=== PATIENT | male | born 1935 | race Two or more races ===

== ENCOUNTER 2022-07-22 14:09 | Inpatient (IN) | payer OTHER, MEDICARE, MEDICAID ==
[~2022-07-22] VITALS: Ht 180.3 cm; Wt 92.3 kg
[2022-07-22 15:31] LABS: Basophils # (auto) 0.1 10 ^3/uL (0-0.2); Basophils % (auto) 0.7 % (0.0-2.0); Eosinophils # (auto) 0.5 10 ^3/uL (0-0.8); Eosinophils % (auto) 5.8 % (0.0-7.0); Hematocrit 45.2 % (41.0-53.0); Hemoglobin 15.5 g/dL (13.5-17.5); Lymphocytes % (auto) 10.6 % (10.0-50.0); Mean Corpuscular Hemoglobin 32.1 pg (28.0-32.0); Mean Corpuscular Hgb Conc. 34.2 g/dL (32.0-36.0); Mean Corpuscular Volume 93.7 fL (80.0-100.0); Monocytes # (auto) 0.7 10 ^3/uL (0-1.3); Monocytes % (auto) 6.9 % (0.0-12.0); Neutrophils # (auto) 7.2 10 ^3/uL (1.6-8.6); Red Blood Cells 4.83 10^6/uL (4.5-5.90); Red Cell Distribution Width 14.1 % (11.8-14.3); White Blood Cell 9.5 10^3/uL (4.4-10.8)
[2022-07-22 15:38] LABS: INR 1.14 (0.9-1.15); Partial Thromboplastin Time 33.9 sec (24.6-33.4)
[2022-07-22 15:57] LABS: Potassium 3.8 mmol/L (3.5-5.1)
[2022-07-22 16:00] LABS: Albumin 3.2 g/dL (3.4-5.0); BUN/Creatinine Ratio 22.1; Calcium 8.9 mg/dL (8.5-10.1)
[2022-07-22 16:03] LABS: Bilirubin, Total 1.8 mg/dL (0.2-1.0); Total Protein 6.7 g/dL (6.4-8.2)
[2022-07-22] MEDS ORDERED: MORPHINE SULFATE 4 MG/ML SYR/VIAL IV ONE (16:30)
[2022-07-22] MEDS ORDERED: ONDANSETRON HCL 4 MG/2 ML VIAL IV ONE (16:30)
[2022-07-22 17:13] LABS: Urine Bacteria NONE SEEN /hpf (None Seen); Urine Blood 3+ /uL (Negative); Urine Specific Gravity 1.017 (1.001-1.035); Urine WBC 328 /hpf (0 - 3); Urine WBC Clumps PRESENT /hpf (None Seen)
[2022-07-22] MEDS ORDERED: PANTOPRAZOLE 40 MG/10 ML VIAL INJ IV ONE (19:15)
[2022-07-22] MEDS ORDERED: ACETAMINOPHEN 325 MG TAB PO PRN (19:15)
[2022-07-22] MEDS ORDERED: TAMS0.4C36 PO (19:23)
[2022-07-22] MEDS ORDERED: FLUT1AER12 INH (19:23)
[2022-07-22] MEDS ORDERED: ZOLP10TA6 PO (19:23)
[2022-07-22] MEDS ORDERED: CEPH500C PO (19:23)
[2022-07-22] MEDS ORDERED: TEMA30CA PO (19:23)
[2022-07-22] MEDS ORDERED: DOCU100C10 (19:23)
[2022-07-22] MEDS ORDERED: APIX5TAB (19:23)
[2022-07-22] MEDS ORDERED: GAB100C PO (19:23)
[2022-07-22] MEDS ORDERED: KETOROLAC TROMETH 30 MG/ML 1ML VIAL IV PRN (19:45)
[2022-07-22] MEDS ORDERED: KETOROLAC TROMETH 30 MG/ML 1ML VIAL IV ONE (19:45)
[2022-07-22 20:01] LABS: Cholesterol 123 mg/dL (< 200); HDL Cholesterol 46 mg/dL (40-59); LDL Cholesterol 72 mg/dL (< 100); Triglycerides 77 mg/dL (< 150)
[2022-07-22] MEDS: TAMSULOSIN HYDROCHLORIDE 0.4 MG CAP PO SCH (22:13)
[2022-07-22] MEDS: GABAPENTIN 100 MG CAP PO SCH (22:14)
[2022-07-22] MEDS: SODIUM CHLORIDE 0.9% 1,000 ML IV SCH (22:15)
[2022-07-22] MEDS ORDERED: MORPHINE SULFATE INJ 2 MG/ml SYRG IV PRN (23:30)
[2022-07-23 04:54] LABS: Basophils # (auto) 0 10 ^3/uL (0-0.2); Basophils % (auto) 0.3 % (0.0-2.0); Eosinophils # (auto) 0.5 10 ^3/uL (0-0.8); Eosinophils % (auto) 6.2 % (0.0-7.0); Hemoglobin 13.7 g/dL (13.5-17.5); Lymphocytes # (auto) 0.5 10 ^3/uL (0.4-5.4); Lymphocytes % (auto) 6.1 % (10.0-50.0); Mean Corpuscular Hemoglobin 31.8 pg (28.0-32.0); Mean Corpuscular Hgb Conc. 34.1 g/dL (32.0-36.0); Monocytes # (auto) 0.6 10 ^3/uL (0-1.3); Neutrophils # (auto) 6.8 10 ^3/uL (1.6-8.6); Neutrophils % (auto) 80.4 % (37.0-80.0); Red Cell Distribution Width 14.4 % (11.8-14.3); White Blood Cell 8.5 10^3/uL (4.4-10.8)
[2022-07-23 05:12] LABS: Potassium 3.9 mmol/L (3.5-5.1)
[2022-07-23 05:16] LABS: Albumin 2.8 g/dL (3.4-5.0); BUN/Creatinine Ratio 24.1; Calcium 8.4 mg/dL (8.5-10.1)
[2022-07-23 05:25] LABS: Bilirubin, Total 2.2 mg/dL (0.2-1.0); Total Protein 5.9 g/dL (6.4-8.2)
[2022-07-23] MEDS: GABAPENTIN 100 MG CAP PO SCH ×3 (06:40→21:39)
[2022-07-23] MEDS: SODIUM CHLORIDE 0.9% 1,000 ML IV SCH (09:33)
[2022-07-23] MEDS: PANTOPRAZOLE 40 MG/10 ML VIAL INJ IV SCH (10:33)
[2022-07-23] MEDS: ENOXAPARIN SOD 40 MG/0.4 ML SYRINGE SC SCH (10:33)
[2022-07-23] MEDS ORDERED: cefTRIAXone 1GM/50ML D5W 50 ML IV ONE (11:15)
[2022-07-23 18:38] LABS: Hematocrit 40.5 % (41.0-53.0); Hemoglobin 13.8 g/dL (13.5-17.5)
[2022-07-23 20:08] VITALS: BP 104/58
[2022-07-23] MEDS: TAMSULOSIN HYDROCHLORIDE 0.4 MG CAP PO SCH (21:39)
[2022-07-23 22:00] VITALS: BP 104/58
[2022-07-24] MEDS: SODIUM CHLORIDE 0.9% 1,000 ML IV SCH ×2 (00:26→14:09)
[2022-07-24 05:00] VITALS: BP 130/67
[2022-07-24] MEDS: GABAPENTIN 100 MG CAP PO SCH ×3 (05:55→21:43)
[2022-07-24 09:00] VITALS: BP 127/66
[2022-07-24] MEDS: cefTRIAXone 1GM/50ML D5W 50 ML IV SCH (10:48)
[2022-07-24] MEDS: ENOXAPARIN SOD 40 MG/0.4 ML SYRINGE SC SCH (10:48)
[2022-07-24] MEDS: PANTOPRAZOLE 40 MG/10 ML VIAL INJ IV SCH (10:48)
[2022-07-24 13:00] VITALS: BP 114/56
[2022-07-24] MEDS: HYDROcodone-ACET 5/325MG TAB PO PRN (13:15)
[2022-07-24 17:00] VITALS: BP 117/75
[2022-07-24] MEDS: TAMSULOSIN HYDROCHLORIDE 0.4 MG CAP PO SCH (21:42)
[2022-07-24 22:00] VITALS: BP 105/59
[2022-07-25 05:00] VITALS: BP 105/67
[2022-07-25] MEDS: SODIUM CHLORIDE 0.9% 1,000 ML IV SCH ×2 (05:21→21:55)
[2022-07-25] MEDS: GABAPENTIN 100 MG CAP PO SCH ×3 (05:32→21:54)
[2022-07-25] MEDS: cefTRIAXone 1GM/50ML D5W 50 ML IV SCH (09:22)
[2022-07-25] MEDS: ENOXAPARIN SOD 40 MG/0.4 ML SYRINGE SC SCH (09:23)
[2022-07-25 09:30] VITALS: BP 104/75
[2022-07-25] MEDS: HYDROcodone-ACET 5/325MG TAB PO PRN (09:31)
[2022-07-25 13:00] VITALS: BP 102/59
[2022-07-25 17:00] VITALS: BP 104/63
[2022-07-25] MEDS: TAMSULOSIN HYDROCHLORIDE 0.4 MG CAP PO SCH (21:55)
[2022-07-25 22:00] VITALS: BP 110/62
[2022-07-26] MEDS: GABAPENTIN 100 MG CAP PO SCH ×3 (06:41→22:22)
[2022-07-26] MEDS: cefTRIAXone 1GM/50ML D5W 50 ML IV SCH (08:39)
[2022-07-26 09:00] VITALS: BP 124/62
[2022-07-26] MEDS: SODIUM CHLORIDE 0.9% 1,000 ML IV SCH (09:03)
[2022-07-26] MEDS: ENOXAPARIN SOD 40 MG/0.4 ML SYRINGE SC SCH (09:05)
[2022-07-26] MEDS: HYDROcodone-ACET 5/325MG TAB PO PRN (10:32)
[2022-07-26 13:00] VITALS: BP 101/58
[2022-07-26 16:46] VITALS: BP 104/61
[2022-07-26 22:00] VITALS: BP 113/65
[2022-07-26] MEDS: TAMSULOSIN HYDROCHLORIDE 0.4 MG CAP PO SCH (22:23)
[2022-07-27] MEDS: SODIUM CHLORIDE 0.9% 1,000 ML IV SCH ×2 (02:20→13:39)
[2022-07-27 05:00] VITALS: BP 135/88
[2022-07-27] MEDS: GABAPENTIN 100 MG CAP PO SCH ×2 (05:44→14:00)
[2022-07-27] MEDS ORDERED: DEXTROSE 50% SYRINGE 50 ML IV ONE (07:08)
[2022-07-27] MEDS: cefTRIAXone 1GM/50ML D5W 50 ML IV SCH (08:44)
[2022-07-27 09:00] VITALS: BP 121/86
[2022-07-27] MEDS: ENOXAPARIN SOD 40 MG/0.4 ML SYRINGE SC SCH (10:02)
[2022-07-27 13:00] VITALS: BP 103/61
[2022-07-27 16:54] VITALS: BP 144/69
== END 2022-07-27 16:00 | DRG 536 ==
LOC: EDBD 14:09 → ER 14:17 → OVERFLOW 19:19 → WEST WING 07-23 18:39
PROVIDERS: ADMIT Nurse Practitioner Family; ATTEND Family Medicine
DX: S32.432A Displaced fracture of anterior column [iliopubic] of left acetabulum, initial encounter for closed fracture (principal); S32.592A Other specified fracture of left pubis, initial encounter for closed fracture; E46 Unspecified protein-calorie malnutrition; J44.1 Chronic obstructive pulmonary disease with (acute) exacerbation; N39.0 Urinary tract infection, site not specified; N40.0 Benign prostatic hyperplasia without lower urinary tract symptoms; E66.01 Morbid (severe) obesity due to excess calories; W18.39XA Other fall on same level, initial encounter; G62.9 Polyneuropathy, unspecified; Z20.822 Contact with and (suspected) exposure to COVID-19; Z68.33 Body mass index [BMI] 33.0-33.9, adult; Z87.891 Personal history of nicotine dependence; Z86.718 Personal history of other venous thrombosis and embolism; Z90.49 Acquired absence of other specified parts of digestive tract; Z91.81 History of falling; Y93.89 Activity, other specified; Y92.89 Other specified places as the place of occurrence of the external cause; Y99.8 Other external cause status
CPT/HCPCS: 36415; 71101; 73502; 73700; 80053; 80061; 81001; 83036; 84443; 85014; 85018; 85025; 85610; 85730; 86850; 86900; 86901; 87040; 87086; 87426; 93005; 96374; 96375; 97110; 97116; 97163; C9113; G0378; J0696; J1885; J2405

== ENCOUNTER 2022-12-24 00:25 | Emergency (ER) | payer MEDICARE, MEDICAID ==
[~2022-12-24] VITALS: Ht 182.9 cm; Wt 86.3 kg
[~2022-12-24 00:25] MED LIST: APIX5TAB; CEPH500C PO; DOCU-265; FLUT1AER12 INH; GAB100C PO; TAMS0.4C36 PO; TEMA30CA PO; ZOLP10TA6 PO
[2022-12-24 07:30] LABS: Basophils # (auto) 0.1 10 ^3/uL (0-0.2); Basophils % (auto) 0.9 % (0.0-2.0); Eosinophils # (auto) 0.5 10 ^3/uL (0-0.8); Eosinophils % (auto) 8.8 % (0.0-7.0); Hematocrit 42.2 % (41.0-53.0); Hemoglobin 14.5 g/dL (13.5-17.5); Lymphocytes % (auto) 18.8 % (10.0-50.0); Mean Corpuscular Hemoglobin 31.2 pg (28.0-32.0); Mean Corpuscular Hgb Conc. 34.3 g/dL (32.0-36.0); Monocytes # (auto) 0.8 10 ^3/uL (0-1.3); Monocytes % (auto) 14.5 % (0.0-12.0); Neutrophils # (auto) 3.1 10 ^3/uL (1.6-8.6); Nucleated Red Blood Cells % 0.2 %; Red Blood Cells 4.64 10^6/uL (4.5-5.90); Red Cell Distribution Width 14.5 % (11.8-14.3); White Blood Cell 5.4 10^3/uL (4.4-10.8)
[2022-12-24 07:44] LABS: INR 1.07 (0.9-1.15); Partial Thromboplastin Time 34.2 sec (24.6-33.4)
[2022-12-24 07:49] LABS: Albumin 3.2 g/dL (3.4-5.0); Calcium 8.2 mg/dL (8.5-10.1)
[2022-12-24 07:54] LABS: BUN/Creatinine Ratio 20.3 (10.0-20.0); Bilirubin, Total 0.8 mg/dL (0.2-1.0); Total Protein 6.2 g/dL (6.4-8.2)
[2022-12-24 12:44] VITALS: BP 120/98
== END 2022-12-24 08:57 | disposition home or self-care (01) ==
LOC: ER 00:25 → EDUNIT# 00:25 → EDBD 00:25 → ER 08:57
DX: M79.662 Pain in left lower leg (principal); M79.661 Pain in right lower leg; J44.9 Chronic obstructive pulmonary disease, unspecified; Z87.891 Personal history of nicotine dependence; Z90.49 Acquired absence of other specified parts of digestive tract
CPT/HCPCS: 36415; 80053; 84484; 85025; 85610; 85730; 93970

== ENCOUNTER 2023-12-16 09:05 | Inpatient (IN) | payer OTHER, MEDICAID ==
[~2023-12-16] VITALS: Ht 188 cm; Wt 94.2 kg
[2023-12-16 10:18] LABS: Basophils # (auto) 0 10 ^3/uL (0-0.2); Basophils % (auto) 0.5 % (0.0-2.0); Eosinophils # (auto) 0 10 ^3/uL (0-0.8); Eosinophils % (auto) 0.4 % (0.0-7.0); Hematocrit 32.1 % (41.0-53.0); Hemoglobin 11.2 g/dL (13.5-17.5); Lymphocytes # (auto) 0.5 10 ^3/uL (0.4-5.4); Lymphocytes % (auto) 6.2 % (10.0-50.0); Mean Corpuscular Hemoglobin 32.4 pg (28.0-32.0); Mean Corpuscular Hgb Conc. 34.7 g/dL (32.0-36.0); Mean Corpuscular Volume 93.3 fL (80.0-100.0); Monocytes # (auto) 0.7 10 ^3/uL (0-1.3); Monocytes % (auto) 9.4 % (0.0-12.0); Neutrophils # (auto) 6.3 10 ^3/uL (1.6-8.6); Neutrophils % (auto) 83.5 % (37.0-80.0); Red Blood Cells 3.44 10^6/uL (4.5-5.90); White Blood Cell 7.6 10^3/uL (4.4-10.8)
[2023-12-16 10:41] LABS: Albumin 3.4 g/dL (3.2-4.8); Alkaline Phosphatase 46 U/L (46-116); Anion Gap 5 (5-15); Aspartate Aminotransferase 13 U/L (13-40); BUN/Creatinine Ratio 17.9 (10.0-20.0); Blood Urea Nitrogen 19 mg/dL (9-23); Carbon Dioxide 26 mmol/L (20-30); Chloride 110 mmol/L (98-107); Glucose 113 mg/dL (74-106); Potassium 4.1 mmol/L (3.5-5.1); Sodium 141 mmol/L (136-145)
[2023-12-16 10:42] LABS: Alanine Aminotransferase < 9 U/L (7-40); Bilirubin, Total 0.9 mg/dL (0.2-1.0); Total Protein 5.6 g/dL (5.7-8.2)
[2023-12-16 10:49] LABS: INR 1.52 (0.9-1.15); Prothrombin Time 15.6 sec (9.3-11.8)
[2023-12-16 12:19] VITALS: O2SAT 98
[2023-12-16] MEDS ORDERED: NITROGLYCERIN 0.4 MG SL TAB SL PRN (14:45)
[2023-12-16] MEDS ORDERED: MORPHINE SULFATE INJ 2 MG/ml SYRG IV PRN (14:45)
[2023-12-16 20:00] VITALS: BP 133/81; PULSE 71; PULSE 82; RESP 18; TEMP 36.4
[2023-12-16] MEDS: APIXABAN 5 MG TAB PO SCH (20:35)
[2023-12-16] MEDS: HYDROcodone-ACET 5/325MG TAB PO PRN (20:35)
[2023-12-16] MEDS: PIPERACILLIN-TAZOB 3.375GM 100 ML IV SCH (20:36)
[2023-12-16 21:00] VITALS: BP 126/62; PULSE 89; RESP 18; TEMP 97.3; O2SAT 97
[2023-12-17] VITALS (8 sets, daily range): BP systolic 112–130; BP diastolic 61–75; PULSE 70–99; RESP 16–20; TEMP 97.7–98.4; O2SAT 95–97
[2023-12-17] MEDS: SODIUM CHLOR 0.9% PF (SALINE LOCK) 10ML VIAL/SYR IV SCH (04:48)
[2023-12-17 06:40] LABS: Basophils # (auto) 0 10 ^3/uL (0-0.2); Basophils % (auto) 0.5 % (0.0-2.0); Eosinophils # (auto) 0.2 10 ^3/uL (0-0.8); Eosinophils % (auto) 3.4 % (0.0-7.0); Hematocrit 26.3 % (41.0-53.0); Hemoglobin 9.2 g/dL (13.5-17.5); Lymphocytes # (auto) 0.9 10 ^3/uL (0.4-5.4); Lymphocytes % (auto) 12.5 % (10.0-50.0); Mean Corpuscular Hemoglobin 32.7 pg (28.0-32.0); Mean Corpuscular Volume 93.4 fL (80.0-100.0); Neutrophils % (auto) 69.6 % (37.0-80.0); Red Blood Cells 2.81 10^6/uL (4.5-5.90); Red Cell Distribution Width 14.3 % (11.8-14.3); White Blood Cell 7.2 10^3/uL (4.4-10.8)
[2023-12-17 07:01] LABS: Alkaline Phosphatase 39 U/L (46-116); Anion Gap 5 (5-15); Aspartate Aminotransferase 15 U/L (13-40); Bilirubin, Total 1.2 mg/dL (0.2-1.0); Blood Urea Nitrogen 23 mg/dL (9-23); Calcium 8.6 mg/dL (8.7-10.4); Carbon Dioxide 27 mmol/L (20-30); Chloride 110 mmol/L (98-107); Glucose 101 mg/dL (74-106); Potassium 3.6 mmol/L (3.5-5.1); Sodium 142 mmol/L (136-145); Total Protein 5.1 g/dL (5.7-8.2)
[2023-12-17 07:12] LABS: Alanine Aminotransferase < 9 U/L (7-40)
[2023-12-17] MEDS: ZINC SULFATE 220mg CAP or TAB PO SCH (11:22)
[2023-12-17] MEDS: MULTIPLE VITAMIN TAB PO SCH (11:22)
[2023-12-17] MEDS: CLINDAMYCIN 600MG IV 50 ML IV ONE (11:24)
[2023-12-17] MEDS: CLINDAMYCIN 600MG IV 50 ML IV SCH (14:26)
[2023-12-17] MEDS: MELATONIN 5 MG TAB PO SCH (21:21)
[2023-12-17] MEDS: DOCUSATE SOD 100 MG CAP PO PRN (21:32)
[2023-12-18] VITALS (9 sets, daily range): BP systolic 102–152; BP diastolic 54–96; PULSE 63–75; RESP 14–18; TEMP 97.8–98.2; O2SAT 98–100
[2023-12-18 07:00] LABS: Basophils # (auto) 0 10 ^3/uL (0-0.2); Basophils % (auto) 0.7 % (0.0-2.0); Eosinophils # (auto) 0.4 10 ^3/uL (0-0.8); Eosinophils % (auto) 5.9 % (0.0-7.0); Hematocrit 23.6 % (41.0-53.0); Hemoglobin 8.2 g/dL (13.5-17.5); Lymphocytes # (auto) 1.1 10 ^3/uL (0.4-5.4); Lymphocytes % (auto) 17.8 % (10.0-50.0); Mean Corpuscular Hemoglobin 32.9 pg (28.0-32.0); Mean Corpuscular Hgb Conc. 34.7 g/dL (32.0-36.0); Mean Corpuscular Volume 94.9 fL (80.0-100.0); Monocytes # (auto) 0.9 10 ^3/uL (0-1.3); Monocytes % (auto) 14.9 % (0.0-12.0); Neutrophils # (auto) 3.8 10 ^3/uL (1.6-8.6); Neutrophils % (auto) 60.7 % (37.0-80.0); Red Blood Cells 2.49 10^6/uL (4.5-5.90); Red Cell Distribution Width 14.1 % (11.8-14.3); White Blood Cell 6.2 10^3/uL (4.4-10.8)
[2023-12-18 07:17] LABS: Albumin 2.9 g/dL (3.2-4.8); Alkaline Phosphatase 37 U/L (46-116); Anion Gap 6 (5-15); Aspartate Aminotransferase 13 U/L (13-40); Calcium 8.5 mg/dL (8.7-10.4); Carbon Dioxide 26 mmol/L (20-30); Chloride 107 mmol/L (98-107); Glucose 103 mg/dL (74-106); Potassium 3.8 mmol/L (3.5-5.1); Sodium 139 mmol/L (136-145)
[2023-12-18 07:18] LABS: Bilirubin, Total 0.9 mg/dL (0.2-1.0); Total Protein 4.9 g/dL (5.7-8.2)
[2023-12-18 07:23] LABS: Alanine Aminotransferase < 9 U/L (7-40)
[2023-12-18 07:25] LABS: Blood Urea Nitrogen 21 mg/dL (9-23)
[2023-12-19] VITALS (7 sets, daily range): BP systolic 119–126; BP diastolic 59–66; PULSE 66–95; RESP 15–19; TEMP 97–98.1; O2SAT 96–100
[2023-12-19 06:38] LABS: Basophils # (auto) 0 10 ^3/uL (0-0.2); Basophils % (auto) 0.8 % (0.0-2.0); Hemoglobin 7.7 g/dL (13.5-17.5); Monocytes # (auto) 0.9 10 ^3/uL (0-1.3); Neutrophils # (auto) 3.7 10 ^3/uL (1.6-8.6)
[2023-12-19 06:40] LABS: Eosinophils # (auto) 0.5 10 ^3/uL (0-0.8); Eosinophils % (auto) 7.7 % (0.0-7.0); Lymphocytes # (auto) 0.9 10 ^3/uL (0.4-5.4); Lymphocytes % (auto) 15.9 % (10.0-50.0); Mean Corpuscular Hemoglobin 32.7 pg (28.0-32.0); Mean Corpuscular Volume 93.4 fL (80.0-100.0); Monocytes % (auto) 14.4 % (0.0-12.0); Neutrophils % (auto) 61.2 % (37.0-80.0); Red Blood Cells 2.36 10^6/uL (4.5-5.90)
[2023-12-19] MEDS: ONDANSETRON HCL 4 MG/2 ML VIAL IV PRN (14:33)
[2023-12-20] VITALS (7 sets, daily range): BP systolic 96–123; BP diastolic 50–58; PULSE 67–83; RESP 16–19; TEMP 97.6–98.8; O2SAT 96–99
[2023-12-20 06:48] LABS: Monocytes # (auto) 1.2 10 ^3/uL (0-1.3)
[2023-12-20 06:53] LABS: Basophils # (auto) 0 10 ^3/uL (0-0.2); Basophils % (auto) 0.6 % (0.0-2.0); Eosinophils # (auto) 0.3 10 ^3/uL (0-0.8); Eosinophils % (auto) 4.5 % (0.0-7.0); Hematocrit 21.5 % (41.0-53.0); Hemoglobin 7.6 g/dL (13.5-17.5); Lymphocytes # (auto) 0.8 10 ^3/uL (0.4-5.4); Lymphocytes % (auto) 10.5 % (10.0-50.0); Mean Corpuscular Hemoglobin 33.1 pg (28.0-32.0); Mean Corpuscular Hgb Conc. 35.4 g/dL (32.0-36.0); Mean Corpuscular Volume 93.6 fL (80.0-100.0); Monocytes % (auto) 15.9 % (0.0-12.0); Neutrophils # (auto) 5.3 10 ^3/uL (1.6-8.6); Neutrophils % (auto) 68.5 % (37.0-80.0); Red Cell Distribution Width 14.1 % (11.8-14.3); White Blood Cell 7.7 10^3/uL (4.4-10.8)
[2023-12-20 07:04] LABS: INR 1.12 (0.9-1.15); Partial Thromboplastin Time 31.7 SEC (24.5-34.5); Prothrombin Time 11.8 sec (9.3-11.8)
[2023-12-20 07:10] LABS: Alkaline Phosphatase 36 U/L (46-116); Anion Gap 2 (5-15); Aspartate Aminotransferase < 8 U/L (13-40); Bilirubin, Total 1.2 mg/dL (0.2-1.0); Blood Urea Nitrogen 16 mg/dL (9-23); Calcium 8.3 mg/dL (8.5-10.1); Carbon Dioxide 30 mmol/L (20-30); Chloride 106 mmol/L (98-107); Glucose 105 mg/dL (74-106); Magnesium 1.9 mg/dL (1.6-2.6); Potassium 4.3 mmol/L (3.5-5.1); Sodium 138 mmol/L (136-145); Total Protein 5.1 g/dL (5.7-8.2)
[2023-12-20 07:13] LABS: Alanine Aminotransferase < 9 U/L (7-40)
[2023-12-20] MEDS: ceFAZolin 2 GM/D5W50ml 50 ML IV ONE (13:15)
[2023-12-20] MEDS: LIDOCAINE 1% HCL (LOCAL ANESTH.) INJ 20ML MDV ONE (13:18)
[2023-12-20] MEDS: HYDROmorphone HCL 2 MG/ML VL/or syr IV ONE (13:30)
[2023-12-20] MEDS: HYDROmorphone HCL 2 MG/ML VL/or syr ONE (13:31)
[2023-12-20] MEDS: POVIDONE IODINE 10 % TOPICAL OINT 30GM TOP ONE (13:59)
[2023-12-20] MEDS: LACTULOSE 20Gm/30ML SOLN PO ONE (21:07)
[2023-12-21 05:19] VITALS: BP 114/60; PULSE 77; RESP 19; TEMP 98.3; O2SAT 100
[2023-12-21 06:14] LABS: Hemoglobin 7.8 g/dL (13.5-17.5)
[2023-12-21 06:18] LABS: Hematocrit 22.1 % (41.0-53.0); Mean Corpuscular Hgb Conc. 35.3 g/dL (32.0-36.0); Mean Corpuscular Volume 93.5 fL (80.0-100.0); Red Blood Cells 2.36 10^6/uL (4.5-5.90); Red Cell Distribution Width 14.1 % (11.8-14.3); White Blood Cell 8.2 10^3/uL (4.4-10.8)
[2023-12-21 06:19] LABS: Basophils % (manual) 0 (0.0-2.0); Blast Cells 0; Metamyelocytes % 0; Myelocytes % 0; Promyelocytes % 0; Reactive Lymphocytes 0
[2023-12-21 06:26] LABS: Anion Gap 2 (5-15); Carbon Dioxide 29 mmol/L (20-30); Chloride 105 mmol/L (98-107); Potassium 4.3 mmol/L (3.5-5.1); Sodium 136 mmol/L (136-145)
[2023-12-21 06:27] LABS: Calcium 8.5 mg/dL (8.5-10.1); INR 1.18 (0.9-1.15); Prothrombin Time 12.4 sec (9.3-11.8)
[2023-12-21 06:32] LABS: BUN/Creatinine Ratio 17.4 (10.0-20.0); Blood Urea Nitrogen 15 mg/dL (9-23); Glucose 99 mg/dL (74-106)
[2023-12-21 06:33] LABS: Magnesium 1.9 mg/dL (1.6-2.6)
[2023-12-21 06:49] LABS: Band Neutrophils % (manual) 4; Eosinophils % (manual) 1 (0-7); Lymphocytes % (manual) 13 (10.0-50.0); Monocytes % (manual) 22 (0-12); Platelet Estimate Adequate
[2023-12-21 08:30] VITALS: BP 117/54; PULSE 73; RESP 18; TEMP 97.6; O2SAT 98
[2023-12-21 13:00] VITALS: BP 115/62; PULSE 98; RESP 18; TEMP 97.9; O2SAT 96
[2023-12-21 17:30] VITALS: BP 134/83; PULSE 78; RESP 18; TEMP 98.1; O2SAT 97
[2023-12-21 21:00] VITALS: BP 100/48; PULSE 85; RESP 19; TEMP 98; O2SAT 98
[2023-12-21] MEDS: APIXABAN 5 MG TAB PO SCH (22:21)
[2023-12-22] VITALS (7 sets, daily range): BP systolic 95–122; BP diastolic 45–70; PULSE 67–79; RESP 17–20; TEMP 97.9–98.7; O2SAT 93–100
[2023-12-22 05:30] LABS: Hematocrit 21.7 % (41.0-53.0); Hemoglobin 7.6 g/dL (13.5-17.5); Mean Corpuscular Hemoglobin 32.7 pg (28.0-32.0); Mean Corpuscular Volume 93.4 fL (80.0-100.0); Red Blood Cells 2.32 10^6/uL (4.5-5.90); White Blood Cell 6.9 10^3/uL (4.4-10.8)
[2023-12-22 05:32] LABS: Basophils % (manual) 0 (0.0-2.0); Blast Cells 0; Metamyelocytes % 0; Myelocytes % 0; Promyelocytes % 0; Reactive Lymphocytes 0
[2023-12-22 05:53] LABS: Albumin 2.9 g/dL (3.2-4.8); Alkaline Phosphatase 36 U/L (46-116); Anion Gap 2 (5-15); Aspartate Aminotransferase < 8 U/L (13-40); BUN/Creatinine Ratio 19.4 (10.0-20.0); Blood Urea Nitrogen 18 mg/dL (9-23); Calcium 8.5 mg/dL (8.7-10.4); Carbon Dioxide 29 mmol/L (20-30); Chloride 107 mmol/L (98-107); Creatine Kinase IFCC 20 U/L (46-171); Glucose 101 mg/dL (74-106); Magnesium 2.1 mg/dL (1.6-2.6); Potassium 4.2 mmol/L (3.5-5.1); Sodium 138 mmol/L (136-145)
[2023-12-22 05:54] LABS: Bilirubin, Total 1.4 mg/dL (0.2-1.0); Total Protein 5.3 g/dL (5.7-8.2)
[2023-12-22 06:18] LABS: Alanine Aminotransferase < 9 U/L (7-40)
[2023-12-22 08:24] LABS: Band Neutrophils % (manual) 2; Eosinophils % (manual) 6 (0-7); Lymphocytes % (manual) 14 (10.0-50.0); Monocytes % (manual) 18 (0-12)
[2023-12-22 08:25] LABS: Platelet Estimate Adequate; RBC Morphology Normal
[2023-12-23 01:00] VITALS: BP 133/68; PULSE 74; RESP 18; TEMP 98.3; O2SAT 100
[2023-12-23] MEDS: ACETAMINOPHEN 325 MG TAB PO PRN (03:00)
[2023-12-23 05:00] VITALS: BP 131/67; PULSE 70; RESP 17; TEMP 98.1; O2SAT 100
[2023-12-23 06:37] LABS: Eosinophils # (auto) 0.5 10 ^3/uL (0-0.8); Lymphocytes # (auto) 0.8 10 ^3/uL (0.4-5.4); Monocytes # (auto) 0.9 10 ^3/uL (0-1.3)
[2023-12-23 06:40] LABS: Basophils # (auto) 0.1 10 ^3/uL (0-0.2); Basophils % (auto) 0.9 % (0.0-2.0); Eosinophils % (auto) 7.7 % (0.0-7.0); Hemoglobin 7.7 g/dL (13.5-17.5); Lymphocytes % (auto) 12.8 % (10.0-50.0); Mean Corpuscular Hemoglobin 32.8 pg (28.0-32.0); Mean Corpuscular Hgb Conc. 34.9 g/dL (32.0-36.0); Monocytes % (auto) 15.5 % (0.0-12.0); Neutrophils # (auto) 3.8 10 ^3/uL (1.6-8.6); Neutrophils % (auto) 63.1 % (37.0-80.0); Red Blood Cells 2.34 10^6/uL (4.5-5.90); Red Cell Distribution Width 14.4 % (11.8-14.3); White Blood Cell 6.1 10^3/uL (4.4-10.8)
[2023-12-23 06:55] LABS: Alkaline Phosphatase 36 U/L (46-116); Anion Gap 4 (5-15); Aspartate Aminotransferase < 8 U/L (13-40); BUN/Creatinine Ratio 21.4 (10.0-20.0); Bilirubin, Total 1.5 mg/dL (0.2-1.0); Blood Urea Nitrogen 18 mg/dL (9-23); Calcium 8.3 mg/dL (8.5-10.1); Carbon Dioxide 27 mmol/L (20-30); Chloride 106 mmol/L (98-107); Glucose 96 mg/dL (74-106); Magnesium 2.1 mg/dL (1.6-2.6); Potassium 3.9 mmol/L (3.5-5.1); Sodium 137 mmol/L (136-145); Total Protein 5.3 g/dL (5.7-8.2)
[2023-12-23 07:04] LABS: Alanine Aminotransferase < 9 U/L (7-40)
[2023-12-23 09:00] VITALS: BP 145/62; PULSE 81; RESP 14; TEMP 97.8; O2SAT 98
[2023-12-23 13:00] VITALS: BP 128/60; PULSE 69; RESP 14; TEMP 97.9; O2SAT 100
[2023-12-23 17:00] VITALS: BP 125/65; PULSE 65; RESP 16; TEMP 97.3; O2SAT 98
[2023-12-23 21:00] VITALS: BP 115/64; PULSE 79; RESP 17; TEMP 97.8; O2SAT 96
[2023-12-24] VITALS (7 sets, daily range): BP systolic 110–135; BP diastolic 59–76; PULSE 70–74; RESP 16–18; TEMP 97.6–98.1; O2SAT 97–100
[2023-12-25] VITALS (7 sets, daily range): BP systolic 111–142; BP diastolic 54–75; PULSE 70–83; RESP 18–20; TEMP 97.9–98.2; O2SAT 96–98
[2023-12-25] MEDS: PIPERACILLIN-TAZOB 3.375GM 100 ML IV SCH (17:02)
[2023-12-26 01:00] VITALS: BP 102/50; PULSE 72; RESP 20; TEMP 97.5; O2SAT 96
[2023-12-26 05:00] VITALS: BP 116/61; PULSE 74; RESP 16; TEMP 97.6; O2SAT 98
[2023-12-26 09:00] VITALS: BP 103/67; PULSE 47; RESP 16; TEMP 97.5; O2SAT 98
[2023-12-26 13:00] VITALS: BP 109/63; PULSE 76; RESP 18; TEMP 97.7; O2SAT 98
[2023-12-26] MEDS: Juven Orange Powder PACKET 27.5gm PO ONE (13:15)
[2023-12-26 17:04] VITALS: BP 131/70; PULSE 77; RESP 18; TEMP 98.3; O2SAT 96
[2023-12-26] MEDS: Juven Orange Powder PACKET 27.5gm PO SCH (18:00)
[2023-12-26 21:00] VITALS: BP 133/67; PULSE 77; RESP 18; TEMP 97.8; O2SAT 96
[2023-12-27] VITALS (8 sets, daily range): BP systolic 112–150; BP diastolic 46–75; PULSE 70–87; RESP 16–20; TEMP 97.6–98.1; O2SAT 94–98
[2023-12-27] MEDS: GASTROGRAFIN 120 ML SOL ONE (06:54)
[2023-12-28] VITALS (7 sets, daily range): BP systolic 108–155; BP diastolic 59–76; PULSE 53–86; RESP 14–22; TEMP 97.6–98.3; O2SAT 95–99
[2023-12-29 05:00] VITALS: BP 140/71; PULSE 72; RESP 19; TEMP 98.2; O2SAT 98
[2023-12-29 07:02] LABS: Basophils # (auto) 0.1 10 ^3/uL (0-0.2); Eosinophils # (auto) 0.5 10 ^3/uL (0-0.8); Lymphocytes # (auto) 0.9 10 ^3/uL (0.4-5.4)
[2023-12-29 07:04] LABS: Basophils % (auto) 0.9 % (0.0-2.0); Eosinophils % (auto) 7.5 % (0.0-7.0); Hematocrit 26.1 % (41.0-53.0); Lymphocytes % (auto) 13.3 % (10.0-50.0); Mean Corpuscular Hemoglobin 32.3 pg (28.0-32.0); Mean Corpuscular Hgb Conc. 34.6 g/dL (32.0-36.0); Mean Corpuscular Volume 93.3 fL (80.0-100.0); Monocytes # (auto) 0.8 10 ^3/uL (0-1.3); Monocytes % (auto) 12.3 % (0.0-12.0); Neutrophils # (auto) 4.5 10 ^3/uL (1.6-8.6); Nucleated Red Blood Cells % 0.1 %; Red Cell Distribution Width 14.8 % (11.8-14.3); White Blood Cell 6.8 10^3/uL (4.4-10.8)
[2023-12-29 07:09] LABS: Chloride 106 mmol/L (98-107); Potassium 4.2 mmol/L (3.5-5.1); Sodium 138 mmol/L (136-145)
[2023-12-29 07:10] LABS: Anion Gap 1 (5-15); Carbon Dioxide 31 mmol/L (20-30)
[2023-12-29 07:16] LABS: BUN/Creatinine Ratio 23.5 (10.0-20.0); Blood Urea Nitrogen 23 mg/dL (9-23); Glucose 97 mg/dL (74-106)
[2023-12-29 08:00] VITALS: PULSE 70; RESP 17; O2SAT 96
[2023-12-29 09:00] VITALS: BP 152/87; PULSE 72; RESP 18; TEMP 98.1; O2SAT 98
[2023-12-29 13:00] VITALS: BP 124/69; PULSE 75; RESP 18; TEMP 97.4; O2SAT 98
[2023-12-29 17:00] VITALS: BP 151/73; PULSE 65; RESP 18; TEMP 97.7; O2SAT 96
[2023-12-29 19:30] VITALS: PULSE 71; RESP 16; O2SAT 96
[2023-12-30] VITALS (8 sets, daily range): BP systolic 113–149; BP diastolic 59–77; PULSE 66–86; RESP 17–20; TEMP 97.6–97.9; O2SAT 96–99
[2023-12-31] VITALS (8 sets, daily range): BP systolic 108–120; BP diastolic 50–69; PULSE 66–80; RESP 17–20; TEMP 97.8–98.1; O2SAT 96–100
[2024-01-01] VITALS (8 sets, daily range): BP systolic 115–136; BP diastolic 63–76; PULSE 68–78; RESP 16–20; TEMP 97.5–98.3; O2SAT 93–100
[2024-01-01] MEDS: HYDROcodone-ACET 5/325MG TAB PO PRN (15:44)
[2024-01-02 01:00] VITALS: BP 136/66; PULSE 75; RESP 18; TEMP 98; O2SAT 100
[2024-01-02 05:00] VITALS: BP 145/77; PULSE 89; RESP 17; TEMP 98.1; O2SAT 100
[2024-01-02 09:00] VITALS: BP 130/73; PULSE 74; RESP 20; TEMP 97.6; O2SAT 99
[2024-01-02 12:53] VITALS: BP 130/66; PULSE 91; RESP 20; TEMP 97.4; O2SAT 97
== END 2024-01-02 15:52 | DRG 579 ==
LOC: ER 09:05 → EDBD 09:05 → EDSEX 09:05 → OVERFLOW 14:47 → EAST 18:20
PROVIDERS: ADMIT Internal Medicine Geriatric Medicine; ATTEND Internal Medicine Geriatric Medicine
PROC: 0JCN0ZZ Extirpation of Matter from Right Lower Leg Subcutaneous Tissue and Fascia, Open Approach (ICD-10-PCS; principal; 2023-12-20 13:18)
DX: S80.11XA Contusion of right lower leg, initial encounter (principal); M72.6 Necrotizing fasciitis; L03.115 Cellulitis of right lower limb; I82.501 Chronic embolism and thrombosis of unspecified deep veins of right lower extremity; I96 Gangrene, not elsewhere classified; G62.9 Polyneuropathy, unspecified; J44.9 Chronic obstructive pulmonary disease, unspecified; K59.00 Constipation, unspecified; N40.0 Benign prostatic hyperplasia without lower urinary tract symptoms; W01.0XXA Fall on same level from slipping, tripping and stumbling without subsequent striking against object, initial encounter; Z87.891 Personal history of nicotine dependence; Z79.899 Other long term (current) drug therapy; Z90.49 Acquired absence of other specified parts of digestive tract; Z79.01 Long term (current) use of anticoagulants; Y93.89 Activity, other specified; Y92.89 Other specified places as the place of occurrence of the external cause; Y99.8 Other external cause status
CPT/HCPCS: 36415; 71045; 73502; 73590; 73700; 74250; 80048; 80053; 82550; 83735; 84484; 85007; 85025; 85027; 85610; 85730; 86850; 86900; 86901; 93005; 93971; 97110; 97116; 97163; 97530; G0378; J2001; J2405; J2543; J3490